=== PATIENT | male | born 1990 | race Caucasian/White ===

== ENCOUNTER 2017-10-25 02:50 | Emergency (ER) | payer BC, MEDICAID ==
[~2017-10-25] VITALS: Ht 172.7 cm; Wt 75.0 kg
[2017-10-25] VITALS (12 sets, daily range): BP systolic 115–160; BP diastolic 58–77; PULSE 94–171; RESP 16–22; TEMP 97.5; O2SAT 98–100
[~2017-10-25 02:50] MED LIST: [UNRECOGNIZED DRUG - OTHER]
[2017-10-25] MEDS ORDERED: ADENOSINE IV SOLN 3 MG/ML 2 ML VIAL ONE (03:16)
[2017-10-25] MEDS ORDERED: SODIUM CHLORIDE 0.9% FLUSH 10 ML FLUSH IVF PRN (03:30)
[2017-10-25] MEDS ORDERED: ADENOSINE IV SOLN 3 MG/ML 2 ML VIAL IV PUSH ONE ×2 (03:30)
[2017-10-25] MEDS ORDERED: SODIUM CHLOR 0.9% 1000 ML INJ 1,000 ML IV ONE ×3 (03:30→05:30)
[2017-10-25 03:56] LABS: AUTOMATED NEUTROPHIL # 6.9 TH/MM3 (1.8-7.7); BASOPHIL # 0.1 TH/MM3 (0-0.2); BASOPHIL % 0.6 % (0.0-2.0); EOSINOPHIL # 0.1 TH/MM3 (0-0.4); EOSINOPHIL % 0.4 % (0.0-4.0); HEMATOCRIT 45.1 % (39.0-51.0); HEMOGLOBIN 15.9 GM/DL (13.0-17.0); LYMPH % 37.6 % (9.0-44.0); LYMPHOCYTE # 4.9 TH/MM3 (1.0-4.8); MEAN CELL VOLUME 86.2 FL (80.0-100.0); MEAN CORPUSCULAR HEMOGLOBIN 30.3 PG (27.0-34.0); MEAN CORPUSCULAR HGB CONC 35.2 % (32.0-36.0); MEAN PLATELET VOLUME 8.1 FL (7.0-11.0); NEUT % 53.4 % (16.0-70.0); PLATELET COUNT 332 TH/MM3 (150-450); RED BLOOD COUNT 5.23 MIL/MM3 (4.50-5.90); RED CELL DISTRIBUTION WIDTH 12.4 % (11.6-17.2)
[2017-10-25 04:13] LABS: INTERNATIONAL NORMALIZED RATIO 1.1 RATIO; PROTHROMBIN TIME - PATIENT 10.7 SEC (9.8-11.6)
[2017-10-25 04:17] LABS: ALKALINE PHOSPHATASE 63 U/L (45-117); TOTAL BILIRUBIN ADULT 1.1 MG/DL (0.2-1.0); TOTAL PROTEIN 8.2 GM/DL (6.4-8.2); TROPONIN I LESS THAN 0.02 NG/ML (0.02-0.05)
[2017-10-25 04:18] LABS: ALBUMIN 4.7 GM/DL (3.4-5.0); ALT (GPT) 21 U/L (12-78); AST (GOT) 22 U/L (15-37); BICARBONATE 24.8 MEQ/L (21.0-32.0); BLOOD UREA NITROGEN 18 MG/DL (7-18); CALCIUM 9.1 MG/DL (8.5-10.1); CHLORIDE 101 MEQ/L (98-107); CREATININE 1.35 MG/DL (0.60-1.30); GLOMERULAR FILTRATION RATE 63 ML/MIN (>89); GLUCOSE,RANDOM 111 MG/DL (74-106); SODIUM (NA) 140 MEQ/L (136-145)
--- NOTE | 2017-10-25 04:59 | RADRPT ---
EXAM DATE/TIME: 10/25/2017 04:07 [place] COMPARISON: No previous studies available for comparison. INDICATIONS : Chest pain MEDICAL HISTORY : None. SURGICAL HISTORY : None. ENCOUNTER: Initial ACUITY: 1 day PAIN SCORE: 2/10 LOCATION: Bilateral chest FINDINGS: A single view of the chest demonstrates the lungs to be symmetrically aerated without evidence of mas s, infiltrate or effusion. The cardiomediastinal contours are unremarkable. Osseous structures are intact. CONCLUSION: No acute cardiopulmonary process. Julian Mosley MD on October 25, 2017 at 4:57 Board Certified Radiologist. This report was verified electronically.
[2017-10-25] MEDS ORDERED: POTASSIUM CHLORIDE 10 MEQ CONTROLLED RELEASE TAB PO ONE (05:15)
[2017-10-25] MEDS ORDERED: LORazepam 1 MG TAB PO ONE (05:30)
--- NOTE | 2017-10-25 06:20 | PD ---
HPI Chief Complaint: Cardiac Complaint Time Seen by Provider: 03:25 Travel History International Travel<30 days: No Contact w/Intl Traveler<30days: No Traveled to known affect area: No History of Present Illness HPI Patient is a 27 year old male who comes in after smoking marijuana. He says he drank some alcohol and then smoked marijuana and then started having a panic attack. He complains of his heart racing. He denies any shortness of breath. He says he just feels "weird." He says this is never happened before. He denies any other drug use. He denies any chest pain. He denies any leg swelling or pain. Severity is moderate. PFSH Past Medical History ADD: Yes ADHD: Yes Anxiety: Yes Depression: Yes Diminished Hearing: No Immunizations Current: Yes Tetanus Vaccination: Unknown Influenza Vaccination: No Past Surgical History Ear Surgery: Yes (BILATERAL TUBES) Other Surgery: Yes (TUBES IN EARS) Social History Alcohol Use: Yes (occ) Tobacco Use: Yes Substance Use: Yes (weed) Allergies-Medications (Allergen,Severity, Reaction): Coded Allergies: No Known Allergies (Unverified Adverse Reaction, Unknown, 10/25/17) Reported Meds & Prescriptions Reported Meds & Active Scripts Active No Active Prescriptions or Reported Medications Review of Systems Except as stated in HPI: all other systems reviewed are Neg General / Constitutional: No: Fever, Chills HENT: No: Headaches, Lightheadedness Cardiovascular: Positive: Palpitations, No: Chest Pain or Discomfort Respiratory: No: Shortness of Breath Gastrointestinal: No: Nausea, Vomiting Musculoskeletal: No: Myalgias Skin: No Rash, No Change in Pigmentation Physical Exam Narrative GENERAL: Awake and alert, in no acute distress. SKIN: Focused skin assessment warm/dry. HEAD: Atraumatic. Normocephalic. EYES: Pupils equal and round. No scleral icterus. No injection or drainage. ENT: No nasal bleeding or discharge. Mucous membranes pink and moist. NECK: Trachea midline. No JVD. CARDIOVASCULAR: Tachycardia. No murmur appreciated. RESPIRATORY: No accessory muscle use. Clear to auscultation. Breath sounds equal bilaterally. GASTROINTESTINAL: Abdomen soft, non-tender, nondistended. MUSCULOSKELETAL: No obvious deformities. No clubbing. No cyanosis. No edema. NEUROLOGICAL: Awake and alert. No obvious cranial nerve deficits. Motor grossly within normal limits. Normal speech. PSYCHIATRIC: Appropriate mood and affect; insight and judgment normal. Data Data Last Documented VS Vital Signs Date Time Temp Pulse Resp B/P (MAP) Pulse Ox O2 Delivery O2 Flow Rate FiO2 10/25/17 05:33 114 10/25/17 05:14 18 98 Room Air 10/25/17 02:54 97.5 Orders Orders Adenosine Inj (Adenocard Inj) (10/25/17 03:16) Electrocardiogram (10/25/17 ) Electrocardiogram (10/25/17 03:25) Ckmb (Isoenzyme) Profile (10/25/17 03:25) Complete Blood Count With Diff (10/25/17 03:25) Comprehensive Metabolic Panel (10/25/17 03:25) Prothrombin Time / Inr (Pt) (10/25/17 03:25) Act Partial Throm Time (Ptt) (10/25/17 03:25) Troponin I (10/25/17 03:25) Chest, Single Ap (10/25/17 03:25) Ecg Monitoring (10/25/17 03:25) Bilateral Bp Monitoring (10/25/17 03:25) Iv Access Insert/Monitor (10/25/17 03:25) Oximetry (10/25/17 03:25) Oxygen Administration (10/25/17 03:25) Sodium Chloride 0.9% Flush (Ns Flush) (10/25/17 03:30) Sodium Chlor 0.9% 1000 Ml Inj (Ns 1000 M (10/25/17 03:30) Sodium Chlor 0.9% 1000 Ml Inj (Ns 1000 M (10/25/17 03:30) Adenosine Inj (Adenocard Inj) (10/25/17 03:30) Adenosine Inj (Adenocard Inj) (10/25/17 03:30) CKMB (10/25/17 03:33) CKMB% (10/25/17 03:33) Potassium Chloride (Kcl) (10/25/17 05:15) Sodium Chlor 0.9% 1000 Ml Inj (Ns 1000 M (10/25/17 05:30) Lorazepam (Ativan) (10/25/17 05:30) Labs Laboratory Tests Test 10/25/17 03:33 White Blood Count 13.0 TH/MM3 Red Blood Count 5.23 MIL/MM3 Hemoglobin 15.9 GM/DL Hematocrit 45.1 % Mean Corpuscular Volume 86.2 FL Mean Corpuscular Hemoglobin 30.3 PG Mean Corpuscular Hemoglobin Concent 35.2 % Red Cell Distribution Width 12.4 % Platelet Count 332 TH/MM3 Mean Platelet Volume 8.1 FL Neutrophils (%) (Auto) 53.4 % Lymphocytes (%) (Auto) 37.6 % Monocytes (%) (Auto) 8.0 % Eosinophils (%) (Auto) 0.4 % Basophils (%) (Auto) 0.6 % Neutrophils # (Auto) 6.9 TH/MM3 Lymphocytes # (Auto) 4.9 TH/MM3 Monocytes # (Auto) 1.0 TH/MM3 Eosinophils # (Auto) 0.1 TH/MM3 Basophils # (Auto) 0.1 TH/MM3 CBC Comment DIFF FINAL Differential Comment Prothrombin Time 10.7 SEC Prothromb Time International Ratio 1.1 RATIO Activated Partial Thromboplast Time 22.9 SEC Blood Urea Nitrogen 18 MG/DL Creatinine 1.35 MG/DL Random Glucose 111 MG/DL Total Protein 8.2 GM/DL Albumin 4.7 GM/DL Calcium Level 9.1 MG/DL Alkaline Phosphatase 63 U/L Aspartate Amino Transf (AST/SGOT) 22 U/L Alanine Aminotransferase (ALT/SGPT) 21 U/L Total Bilirubin 1.1 MG/DL Sodium Level 140 MEQ/L Potassium Level 3.0 MEQ/L Chloride Level 101 MEQ/L Carbon Dioxide Level 24.8 MEQ/L Anion Gap 14 MEQ/L Estimat Glomerular Filtration Rate 63 ML/MIN Total Creatine Kinase 236 U/L Creatine Kinase MB LESS THAN 0.5 NG/ML Troponin I LESS THAN 0.02 NG/ML MDM Medical Decision Making Medical Screen Exam Complete: Yes Emergency Medical Condition: Yes Interpretation(s) ECG shows tachycardia at a rate of 167 Differential Diagnosis panic attack vs dehydration vs SVT vs drug intoxication Narrative Course Patient is a 27-year-old male who comes in after smoking marijuana complaining of palpitations. Exam shows tachycardia. IV status, labs sent. Patient given a dose of adenosine with no response. Given a dose of 12 mg with no response. Given 2 L of IV fluids with some slowing of his heart rate. Labs sent show a potassium of 3.0, this was replaced. Patient observed in the ED, his pulse rate improved to normal. He is reassured and advised to avoid drug use. Advised follow-up with his doctor. Advised return to the ED as needed for any worsening symptoms. Diagnosis Primary Impression: Drug reaction Qualified Codes: T88.7XXA - Unspecified adverse effect of drug or medicament, initial encounter Patient Instructions: Adverse Drug Reaction (ED), General Instructions Additional Instructions: Avoid drug use. Drink plenty of fluids. Follow-up with your doctor. Return to the ED as needed for any worsening symptoms. Scripts No Active Prescriptions or Reported Meds Disposition: 01 DISCHARGE HOME Condition: Stable Zakiya Rice MD Oct 25, 2017 06:20
--- NOTE | 2017-10-25 13:32 | EKG ---
Date Performed: 10/25/2017 Time Performed: 03:19:24 PTAGE: 27 years EKG: Rapid supraventricular tachycardia with a regular rhythm, which is probably a paroxysmal SV T Heart rate is [address]-T change Right ventricular conduction delay Compared to previous t racing, the arrhythmia and the ST-T changes are new. Clinical correlation and follow-up tracings jeane mmended. ABNORMAL RHYTHM ECG PREVIOUS TRACING : 03/25/2014 23.02.40 DOCTOR: Omar Guzman Interpretating Date/Time 10/25/2017 13:31:10
--- NOTE | 2017-10-25 13:34 | EKG ---
Date Performed: 10/25/2017 Time Performed: 03:33:06 PTAGE: 27 years EKG: Supraventricular tachycardia with regular rhythm at rate of 150. Possibilities include paro xysmal PVC versus atrial flutter with 2:1 AV conduction. Flutter waves cannot easily be seen in this EKG. Right ventricular conduction disturbance Nonspecific ST-T change Compared to previous tracing, h eart rate has decreased from 167 to 150, no other changes have occurred. Clinical correlation and fol low up tracings recommended. ABNORMAL ECG PREVIOUS TRACING : 10/25/2017 03.19 DOCTOR: Omar Guzman Interpretating Date/Time 10/25/2017 13:33:37
== END 2017-10-25 06:55 | disposition home or self-care (01) ==
LOC: NEPE 02:50
DX: R00.0 Tachycardia, unspecified (principal); T40.7X5A Adverse effect of cannabis (derivatives), initial encounter
CPT/HCPCS: 71045; 80053; 82550; 82552; 84484; 85025; 85610; 85730; 93005; 96360; 96361; 96374; 99285; J0153; J7030

== ENCOUNTER 2018-01-28 18:09 | Emergency (ER) | payer MEDICARE ==
[~2018-01-28] VITALS: Ht 172.7 cm; Wt 70.0 kg
[2018-01-28 18:19] VITALS: BP 158/77; PULSE 114; RESP 20; TEMP 98.5; O2SAT 99
[2018-01-28 19:48] LABS: BILIRUBIN, URINE NEG (NEG); BLOOD, URINE NEG (NEG); GLUCOSE,URINE NEG (NEG); KETONE, URINE NEG (NEG); NITRITE,URINE NEG (NEG); URINE LEUKOCYTE ESTERASE NEG (NEG)
[2018-01-28 19:49] LABS: URINE COLOR STRAW (YELLW/STRAW)
[2018-01-28 21:27] VITALS: BP 139/83; PULSE 97; RESP 18; TEMP 98.1; O2SAT 100
--- NOTE | 2018-01-28 21:28 | PD ---
HPI Chief Complaint: Anxiety Time Seen by Provider: 21:06 Travel History International Travel<30 days: No Contact w/Intl Traveler<30days: No Traveled to known affect area: No History of Present Illness HPI 27-year-old male came to the emergency room with history of anxiety/panic attack. Patient said this happened all of a sudden while he was in the car just prior to coming to the emergency room. He decided to come to the emergency room and be in the waiting room and slowly subsided. Currently he feels calmed down again. This has happened to him multiple times in the past. He takes Xanax as needed for this anxiety. He does have a psychiatrist who prescribes her medications and evaluate him. Patient denies any illegal substance abuse. No history of chest pain. There was a urine analysis done in the waiting room. Patient appears to be in no distress currently. Patient was tachycardic in triage. [facility] Past Medical History Narrative Medical List of his past medical, surgical, social and family history is reviewed from the nursing note. ADD: Yes ADHD: Yes Anxiety: Yes Depression: Yes Diminished Hearing: No Immunizations Current: Yes ?: Not Past Surgical History Ear Surgery: Yes (BILATERAL TUBES) Other Surgery: Yes (TUBES IN EARS) Social History Alcohol Use: Yes (occ) Tobacco Use: Yes Substance Use: Yes (weed) Allergies-Medications (Allergen,Severity, Reaction): Coded Allergies: No Known Allergies (Unverified Adverse Reaction, Unknown, 01/28/18) Comments No known drug allergies. Reported Meds & Prescriptions Reported Meds & Active Scripts Active No Active Prescriptions or Reported Medications Narrative Medication List of his home medications reviewed from the nursing note. Review of Systems Except as stated in HPI: all other systems reviewed are Neg Psychiatric: Positive: Anxiety Physical Exam Narrative GENERAL: Awake, alert, no obvious distress SKIN: Focused skin assessment warm/dry. HEAD: Atraumatic. Normocephalic. EYES: Pupils equal and round. No scleral icterus. No injection or drainage. ENT: No nasal bleeding or discharge. Mucous membranes pink and moist. NECK: Trachea midline. No JVD. CARDIOVASCULAR: Regular rate and rhythm. No murmur appreciated. RESPIRATORY: No accessory muscle use. Clear to auscultation. Breath sounds equal bilaterally. GASTROINTESTINAL: Abdomen soft, non-tender, nondistended. Hepatic and splenic margins not palpable. MUSCULOSKELETAL: No obvious deformities. No clubbing. No cyanosis. No edema. NEUROLOGICAL: Awake and alert. No obvious cranial nerve deficits. Motor grossly within normal limits. Normal speech. PSYCHIATRIC: Appropriate mood and affect; insight and judgment normal. Data Data Last Documented VS Orders Orders Urinalysis - C+S If Indicated (01/28/18 18:36) Ed Discharge Order (01/28/18 21:29) Labs Laboratory Tests Test 01/28/18 18:45 Urine Color STRAW Urine Turbidity CLEAR Urine pH 7.0 Urine Specific Wallace 1.006 Urine Protein NEG mg/dL Urine Glucose (UA) NEG mg/dL Urine Ketones NEG mg/dL Urine Occult Blood NEG Urine Nitrite NEG Urine Bilirubin NEG Urine Urobilinogen LESS THAN 2 mg/dL Urine Leukocyte Esterase NEG Urine WBC LESS THAN 1 /hpf Microscopic Urinalysis Comment CULT NOT INDICATED MDM Medical Decision Making Medical Screen Exam Complete: Yes Emergency Medical Condition: Yes Medical Record Reviewed: Yes Differential Diagnosis Anxiety, panic attack Narrative Course 9:27 PM I have ordered for a repeat set of vitals. Patient was informed about his urinalysis which is within normal limit. He would like to go home at this point and follow-up with a psychiatrist. I am comfortable discharging him home. Procedures EKG Prior to Arrival: No Diagnosis Primary Impression: Panic attack Additional Instructions: Follow-up with your primary care physician. Return to the ER if condition worsens any other new concerns. Scripts No Active Prescriptions or Reported Meds Disposition: 01 DISCHARGE HOME Condition: Stable Jose Juan Prasad MD Jan 28, 2018 21:28
== END 2018-01-28 21:47 | disposition home or self-care (01) ==
LOC: NEPD 18:09
DX: F41.0 Panic disorder [episodic paroxysmal anxiety] (principal); F12.90 Cannabis use, unspecified, uncomplicated; F90.9 Attention-deficit hyperactivity disorder, unspecified type; Z72.0 Tobacco use
CPT/HCPCS: 81001; 99283

== ENCOUNTER 2018-02-01 15:50 | Emergency (ER) | payer MEDICARE ==
[~2018-02-01] VITALS: Ht 175.3 cm; Wt 71.5 kg
[2018-02-01 15:54] VITALS: BP 137/87; PULSE 120; RESP 13; TEMP 97.5; O2SAT 99
--- NOTE | 2018-02-01 17:43 | PD ---
HPI Chief Complaint: Psychiatric Symptoms Time Seen by Provider: 17:32 Travel History International Travel<30 days: No Contact w/Intl Traveler<30days: No Traveled to known affect area: No History of Present Illness HPI 27 YO M presents to the ED requesting voluntary psychiatric evaluation. Patient states he has a history of anxiety and has been taking Xanax for a few years. He is currently out of the medication in between psychiatrists and he is seeking a refill. Says he has been out of the medicine for a few days. He states his panic attacks have been similar to previous episodes. He states he is otherwise feeling well. He denies other somatic complaints. PFS Past Medical History ADD: Yes ADHD: Yes Anxiety: Yes Depression: Yes Diminished Hearing: No Immunizations Current: Yes Past Surgical History Ear Surgery: Yes (BILATERAL TUBES) Other Surgery: Yes (TUBES IN EARS) Social History Alcohol Use: Yes (occ) Tobacco Use: Yes Substance Use: Yes (weed) Allergies-Medications (Allergen,Severity, Reaction): Coded Allergies: No Known Allergies (Unverified Adverse Reaction, Unknown, 01/28/18) Reported Meds & Prescriptions Reported Meds & Active Scripts Active No Active Prescriptions or Reported Medications Review of Systems Except as stated in HPI: all other systems reviewed are Neg Physical Exam Narrative GENERAL: Well-nourished, well-developed white male in no acute distress. PSYCH: Calm and cooperative.. SKIN: Focused skin assessment warm/dry. HEAD: Normocephalic. EYES: No scleral icterus. No injection or drainage. NECK: Supple, trachea midline. No JVD or lymphadenopathy. CARDIOVASCULAR: Regular rate and rhythm without murmurs, gallops, or rubs. RESPIRATORY: Breath sounds clear and equal bilaterally. No accessory muscle use. GASTROINTESTINAL: Abdomen soft, non-tender, nondistended. Active bowel sounds. MUSCULOSKELETAL: No cyanosis, or edema. Walks with a normal gait. BACK: Nontender without obvious deformity. No CVA tenderness. Data Data Last Documented VS Vital Signs Date Time Temp Pulse Resp B/P (MAP) Pulse Ox O2 Delivery O2 Flow Rate FiO2 02/01/18 18:52 02/01/18 15:54 97.5 120 13 99 Orders Orders Psych Screen (02/01/18 17:32) [facility] Medical Decision Making Medical Screen Exam Complete: Yes Emergency Medical Condition: Yes Differential Diagnosis Adjustment disorder versus anxiety versus bipolar versus depression versus dementia versus electrolyte disorder versus malingering versus medication refill versus mood disorder versus ODD versus psychosis versus PTSD versus schizophrenia versus schizoaffective disorder versus substance-induced mood disorder versus other Narrative Course 27-year-old male with PMH of anxiety presents the ED seeking Xanax refill. Patient is currently in between psychiatrist and out of the medication. States that his anxiety symptoms are unchanged from previous episodes. No somatic complaints. Vitals reviewed. Physical exam is reassuring. Basic lab work ordered and pending. Upon discovering that the patient would likely need to stay overnight for psychiatric evaluation. He decided to leave without evaluation. The risks of leaving, up to and including were explained to the patient. He indicated understanding of the risks but still opted to leave AGAINST MEDICAL ADVICE. Diagnosis Primary Impression: Anxiety Scripts No Active Prescriptions or Reported Meds Disposition: 07 AGAINST MEDICAL ADVICE Condition: Stable Nerissa Ovalle Feb 01, 2018 17:43
== END 2018-02-01 19:26 | disposition left against medical advice (07) ==
LOC: NEPJ 15:50
DX: F41.9 Anxiety disorder, unspecified (principal)
CPT/HCPCS: 99281